=== PATIENT | female | born 1970 | race Caucasian/White ===

== ENCOUNTER 2017-06-21 03:35 | Inpatient (IN) | payer OTHER ==
[~2017-06-21] VITALS: Ht 157.5 cm; Wt 53.6 kg
[2017-06-21] MEDS ORDERED: OMEP-110 PO (03:44)
[2017-06-21] MEDS ORDERED: ALPR0.25 PO (03:47)
[2017-06-21] MEDS ORDERED: TRAZ100T15 PO (03:47)
[2017-06-21] MEDS ORDERED: morphine SULFATE 10 MG/ML, 1ML ONE (04:22)
[2017-06-21] MEDS ORDERED: ONDANSETRON 2MG/ML, 2ML ONE ×2 (04:22→09:34)
[2017-06-21 04:26] LABS: HEMATOCRIT 41.1 % (34.6-47.8); HEMOGLOBIN 13.8 g/dL (11.7-16.4); WHITE BLOOD COUNT 15.6 x10^3/uL (3.4-10)
[2017-06-21] MEDS ORDERED: ONDANSETRON 2MG/ML, 2ML IVPush ONE (04:30)
[2017-06-21] MEDS ORDERED: MORPHINE SULFATE 4 MG/ML, 1ML IVPush PRN (04:30)
[2017-06-21] MEDS ORDERED: SODIUM CHLORIDE 0.9% 1,000ML IVBOLUS ONE (04:30)
[2017-06-21] MEDS ORDERED: SODIUM CHLORIDE FLUSH 10ML SYR IVF ONE (04:30)
[2017-06-21 04:38] LABS: ASPARTATE AMINO TRANSFERASE 35 U/L (15-37); BLOOD UREA NITROGEN 11 mg/dL (7-18)
[2017-06-21] MEDS ORDERED: SODIUM CHLORIDE 0.9% 1,000 ML IV ONE (05:33)
[2017-06-21] MEDS ORDERED: CEFOTETAN PMX 1GM/50ML 50 ML ONE (05:42)
[2017-06-21] MEDS ORDERED: HYDROmorphone 1 MG/ML, 1ML ONE (05:43)
[2017-06-21] MEDS ORDERED: ONDANSETRON 2MG/ML, 2ML IVPush PRN ×2 (06:00→12:00)
[2017-06-21] MEDS ORDERED: CEFOTETAN PMX 1GM/50ML 50 ML IV ONE (06:00)
[2017-06-21] MEDS ORDERED: HYDROmorphone 1 MG/ML, 1ML IVPush PRN (06:00)
[2017-06-21 06:59] VITALS: BP 115/72
[2017-06-21] MEDS ORDERED: EPINEPHRINE 1 MG/ML, 1ML ONE (08:34)
[2017-06-21] MEDS ORDERED: BUPIVACAINE/PF 0.5% ONE (08:34)
[2017-06-21] MEDS ORDERED: FENTANYL PF 100 MCG/2ML ONE ×2 (09:08→10:45)
[2017-06-21] MEDS ORDERED: MIDAZOLAM 1 MG/ML, 2ML ONE (09:08)
[2017-06-21] MEDS ORDERED: LIDOCAINE-MPF 2% ,5ML ONE (09:11)
[2017-06-21] MEDS ORDERED: PROPOFOL 10 MG/ML, 20ML ONE (09:11)
[2017-06-21] MEDS ORDERED: ROCURONIUM 10 MG/ML ONE (09:12)
[2017-06-21] MEDS ORDERED: SUCCINYLCHOLINE 20 MG/ML, 10ML ONE (09:12)
[2017-06-21] MEDS ORDERED: SCOPOLAMINE 1MG PATCH TD ONE (09:24)
[2017-06-21] MEDS ORDERED: LIDOCAINE GEL 2%, 5ML ONE (09:34)
[2017-06-21] MEDS ORDERED: NEOSTIGMINE 1 MG/ML, 10ML ONE (09:34)
[2017-06-21] MEDS ORDERED: DEXAMETHASONE 4 MG/ML, 5ML ONE (09:34)
[2017-06-21] MEDS ORDERED: CEFOTETAN 1 GM ONE (09:34)
[2017-06-21] MEDS ORDERED: GLYCOPYRROLATE 0.2MG/1ML, 5ML ONE (09:34)
[2017-06-21] MEDS ORDERED: HYDROmorphone 1 MG/ML, 1ML IV PRN (10:30)
[2017-06-21] MEDS ORDERED: KETOROLAC 30 MG/1 ML IV PRN (10:30)
[2017-06-21] MEDS ORDERED: MEPERIDINE/PF 25MG/0.5ML IVPush PRN (10:30)
[2017-06-21] MEDS ORDERED: ACETAMINOPHEN 325 MG TABLET PO PRN ×2 (10:30→12:00)
[2017-06-21] MEDS ORDERED: OXYcodone 5 MG/5 ML ORAL.SOL UDC PO PRN (10:30)
[2017-06-21] MEDS ORDERED: ACETAMINOPHEN 650 MG/20.3 ML UDC ONE (10:45)
[2017-06-21] MEDS ORDERED: OXYcodone 5 MG/5 ML ORAL.SOL UDC ONE (10:46)
[2017-06-21] MEDS: FENTANYL PF 100 MCG/2ML IV PRN ×2 (10:49→10:56)
[2017-06-21] MEDS ORDERED: POTASSIUM CHLORIDE 20 MEQ in D5%-0.45% NACL 1,000 ML IV SCH (11:47)
[2017-06-21 12:00] VITALS: BP 102/64
[2017-06-21] MEDS: HYDROcodone/APAP 5/325 TABLET PO PRN ×3 (15:45→23:59)
[2017-06-21 20:37] VITALS: BP 112/69
[2017-06-22 03:24] VITALS: BP 92/51
[2017-06-22] MEDS: HYDROcodone/APAP 5/325 TABLET PO PRN ×2 (05:16→09:17)
[2017-06-22 06:30] VITALS: BP 94/62
[2017-06-22] MEDS ORDERED: HYDR-3240 PO (12:26)
== END 2017-06-22 12:35 | disposition home or self-care (01) | DRG 340 ==
LOC: ED 05:16 → EDIP 05:33 → 4WST 07:34 → DCLOUNGE 06-22 12:25
PROVIDERS: ADMIT Surgery; ATTEND Surgery
PROC: 0DTJ4ZZ Resection of Appendix, Percutaneous Endoscopic Approach (ICD-10-PCS; principal; 2017-06-21 09:30)
DX: K35.3 Acute appendicitis with localized peritonitis (principal); Z98.51 Tubal ligation status
CPT/HCPCS: 36415; 74176; 80053; 81001; 83690; 84703; 85025; 87086; 88304; 96361; 96374; 96375; J0171; J1100; J1170; J2250; J2405; J2704; J2710; J3010; J3480; J3490; J0330; J7030; S0074

== ENCOUNTER → 2017-06-30 | Outpatient (CLI) | payer OTHER ==
[~2017-06-30] MED LIST: ALPR0.25 PO; HYDR-3240 PO; OMEP-110 PO; TRAZ100T15 PO
== END ==
LOC: LAB 14:25
PROVIDERS: ATTEND Surgery
DX: Z02.9 Encounter for administrative examinations, unspecified (principal)

== ENCOUNTER → 2017-09-29 | Outpatient (CLI) | payer OTHER | END | disposition home or self-care (01) | LOC: RAD 08:44 | PROVIDERS: ATTEND Nurse Practitioner Family | DX: K21.9 Gastro-esophageal reflux disease without esophagitis (principal); R10.33 Periumbilical pain; R10.30 Lower abdominal pain, unspecified | CPT/HCPCS: 74245 ==

== ENCOUNTER 2017-12-18 06:39 | Emergency (ER) | payer OTHER ==
[~2017-12-18] VITALS: Ht 157.5 cm; Wt 54.4 kg
[2017-12-18] MEDS ORDERED: KETOROLAC 30 MG/1 ML ONE (07:23)
[2017-12-18] MEDS ORDERED: KETOROLAC 30 MG/1 ML IM ONE (07:30)
[2017-12-18 08:28] VITALS: BP 96/60
== END 2017-12-18 08:30 | disposition home or self-care (01) ==
LOC: ED 07:35
DX: S16.1XXA Strain of muscle, fascia and tendon at neck level, initial encounter (principal); M19.012 Primary osteoarthritis, left shoulder; V89.2XXA Person injured in unspecified motor-vehicle accident, traffic, initial encounter; Y93.89 Activity, other specified; Y92.89 Other specified places as the place of occurrence of the external cause; Y99.8 Other external cause status
CPT/HCPCS: 72020; 72050; 99284

== ENCOUNTER → 2020-08-22 | Outpatient (CLI) | payer OTHER ==
[~2020-08-22] MED LIST changes: +TRAZ-175 PO; -TRAZ100T15 PO
== END | disposition home or self-care (01) ==
LOC: RAD 12:44
PROVIDERS: ATTEND Orthopaedic Surgery
DX: M51.16 Intervertebral disc disorders with radiculopathy, lumbar region (principal); M53.3 Sacrococcygeal disorders, not elsewhere classified
CPT/HCPCS: 72148

== ENCOUNTER → 2021-02-28 | Outpatient (CLI) | payer OTHER ==
[~2021-02-28] MED LIST changes: +HYDR-2214 PO; -HYDR-3240 PO
== END | disposition home or self-care (01) ==
LOC: CFH 11:52
PROVIDERS: ATTEND Family Medicine
DX: Z12.31 Encounter for screening mammogram for malignant neoplasm of breast (principal); Z12.39 Encounter for other screening for malignant neoplasm of breast
CPT/HCPCS: 76641; 77063; 77067